=== PATIENT | female | born 1995 | race Caucasian/White ===

== ENCOUNTER 2019-03-22 14:38 | Emergency (ER) | payer SELFPAY ==
[2019-03-22 14:42] VITALS: BP 170/91; PULSE 103; RESP 18; TEMP 36.4; O2SAT 100; BMI 27.2
--- NOTE | 2019-03-22 15:05 | XRR_ITS ---
PROCEDURE INFORMATION: Exam: XR Chest, 1 View Exam date and time: 03/22/2019 3:32 PM Age: 23 years old Clinical indication: Cough; Additional info: Cough/congestion TECHNIQUE: Imaging protocol: XR of the chest Views: 1 view. COMPARISON: CR Chest 2 views* [id number] 11/18/2017 10:58 PM FINDINGS: Lungs: Unremarkable. No consolidation. Pleural space: Unremarkable. No pleural effusion. No pneumothorax. Heart/Mediastinum: Unremarkable. No cardiomegaly. Bones/joints: Unremarkable. XR/XR chest 1V portable [id number] IMPRESSION: No acute findings.
--- NOTE | 2019-03-22 16:28 | ECG_ITS ---
Measurements Intervals [place] Rate: 93 P: 70 SD: 160 QRS: 25 QRSD: 87 T: 47 QT: 341 QTc: 426 SINUS RHYTHM WITH SINUS ARRHYTHMIA LOW QRS VOLTAGE IN PRECORDIAL LEADS [QRS DEFLECTION < 1.0 mV IN CHEST LEADS] Compared to ECG 10/13/2017 18:34:14 Low QRS voltage now present ST (T wave) deviation no longer present Electronically Signed On 03-22-2019 22:08:48 RESEARCH ASSOCIATE PROFESSOR by Fadi Granados M.D. [email or web address]
[2019-03-22 17:53] VITALS: BP 132/73; PULSE 85; O2SAT 99
--- NOTE | 2019-03-22 18:21 | ED_ITS ---
Entered by Mariah Gonzales, acting as scribe for Shawn Ty MD, [facility] [place] 22, 2019 14:38 HPI - SOB/Dyspnea General: Chief Complaint: Shortness of Breath/Dyspnea Stated Complaint: congested/hurts to breathe Time Seen by Provider: 03/22/19 18:19 Source: patient Mode of arrival: ambulatory Limitations: no limitations History of Present Illness: HPI Narrative: 23 yo Female presents to ED with complaint of shortness of breath and congestion. Pt states that she isn't really having chest pains but she can't take a deep breath. Pt states that this has been going on for about a month off and on. Pt is a smoker. MD elicited complaint: shortness of breath Onset (ago): month(s) Timing: intermittent Exacerbating factors: lying flat Relieving factors: nothing Associated symptoms: Reports chest congestion and cough; Deny abdominal pain, chest pain, extremity pain, fever(s), nausea or vomiting Treatment prior to arrival: none Related Data: Home oxygen amount: none Review of Systems General: Reports: 10 or more systems reviewed and unremarkable except in HPI and below Const: Denies: fever, chills or body aches Eyes: Denies: change in vision, blurry vision or blind spots ENMT: Reports: throat pain and ear pain Card: Denies: chest pain Resp: Reports: shortness of breath, non-productive cough and chest congestion; Denies: productive cough GI: Denies: abdominal pain, nausea or vomiting : Denies: flank pain, difficulty urinating or painful urination Musc: Denies: neck pain, back pain, extremity pain or extremity swelling Skin/Breast: Denies: rash, itching or redness Neuro: Denies: headache, numbness in extremities or weakness in extremities Psych: Denies: anxiety or depression PFSH ED PFSH: Statuses (acute, chronic, etc) shown below reflect problem list status as previously entered and may not be historically accurate Social History Smoking and tobacco status: current every day smoker Female Reproductive History: Date of last menstrual period: 03/15/19 Physical Exam Const: COMMON NORMALS: no apparent distress, average body habitus, oriented x3, no limitations, healthy appearing, alert and well nourished HENMT: COMMON NORMALS: normocephalic, head/scalp atraumatic, hearing grossly normal bilaterally, external ears normal, EAC's normal, TM's normal bilaterally, external nose normal, nasal mucous membranes and turbinates normal and moist oral mucous membranes HEAD & SCALP: normocephalic and atraumatic NOSE: external nose normal and nasal mucous membranes and turbinates normal EXTERNAL EAR: Yes external ears normal EXTERNAL AUDITORY CANAL: EAC's normal TYMPANIC MEMBRANE: TM's normal bilaterally Eye: COMMON NORMALS: PERRL, EOMs intact bilaterally, conjunctivae normal and no scleral icterus CONJUNCTIVA: Yes conjunctivae normal PUPIL: Yes PERRL Neck/C-Spine: COMMON NORMALS: full ROM, supple, no meningeal signs, no JVD and no carotid bruits Chest: COMMONS NORMALS: inspection of chest normal and palpation of chest normal Resp: COMMON NORMALS: normal respiratory effort, no retractions, no use of accessory muscles, clear to auscultation bilaterally and percussion normal AUSCULTATION: clear to auscultation bilaterally PERCUSSION: percussion normal Cardio: COMMON NORMALS: no JVD, regular rate, regular rhythm, S1 normal heart sound, S2 normal heart sound, no gallops, no clicks, no murmurs, no rub and peripheral pulses 2+ throughout RATE: regular rate RHYTHM: regular rhythm HEART SOUNDS: S1 normal and S2 normal PERIPHERAL PULSES: pulses 2+ throughout GI: COMMON NORMALS: normal to inspection, nondistended, normoactive bowel barry nds, soft to palpation, non-tender, no hepatosplenomegaly, no masses and no bruits PALPATION: Yes soft and Yes no hepatosplenomegaly : COMMON NORMALS: Yes no CVA tenderness BLADDER/KIDNEY EXAM: Yes no CVA tenderness Back/Pelvis: COMMON NORMALS: no CVA tenderness Extremity: COMMON NORMALS: normal to inspection, full ROM, normal capillary refill, no joint enlargement, no clubbing, cyanosis or edema, no calf tenderness and no pedal edema Neuro: COMMON NORMALS: oriented x3 SENSORIUM/ORIENTATION: Yes alert MENINGEAL SIGNS: Yes no meningeal signs Skin: COMMON NORMALS: no rashes or lesions noted, no wounds, skin turgor normal, no jaundice, no petechiae and no mottling GENERAL SKIN EXAM: no rashes or lesions noted and turgor normal Course Vital Signs: Vital signs: Vital Signs Temperature 97.6 F 03/22/19 14:42 Pulse Rate 71 03/22/19 22:03 Respiratory Rate 16 03/22/19 22:03 Blood Pressure 126/74 03/22/19 22:03 Pulse Oximetry 98 03/22/19 22:03 MDM - SOB/Dyspnea MDM Narrative: Medical decision making narrative: 23-year-old female patient who presents with shortness of breath. This is not a new thing. Evaluation unremarkable other than mildly elevated liver enzymes. Ultrasound of her gallbladder negative. She is advised to follow-up with her primary care provider for evaluation of her liver enzymes. She voiced understanding and is in agreement with the plan. Lab Data: Labs: Lab Results 03/22/19 03/22/19 Range/Units 19:20 19:20 WBC 6.4 (4.0-10.0) 10^3/ uL RBC 4.30 (4.1-5.3) 10^6/u L Hgb 12.6 (11.5-15.3) g/dL Hct 37.6 (37.0-47.0) % MCV 87.4 (81-99) fL MCH 29.3 (28.0-34.0) pg MCHC 33.5 (30.0-36.0) g/dL RDW 12.5 (12.1-15.1) % Plt Count 241 (130-400) 10^3/c mm MPV 9.5 (7.4-10.4) fL Neut % (Auto) 48.7 % Lymph % (Auto) 33.9 % Trigg % (Auto) 11.8 % Eos % (Auto) 4.6 % Baso % (Auto) 0.8 % Neut # (Auto) 3.1 (1.8-7.7) 10^3/u L Lymph # (Auto) 2.2 (0.8-4.8) 10^3/u L Trigg # (Auto) 0.8 (0.2-0.9) 10^3/u L Eos # (Auto) 0.3 (0.0-0.8) 10^3/u L Baso # (Auto) 0.1 (0.0-0.1) 10^3/u L Nucleated RBC % (a uto) 0 % Nucleated RBCs # 0.0 /100WBC Sodium 139 (136-145) mmol/L Potassium 4.0 (3.5-5.1) mmol/L Chloride 104 (98-107) mmol/L Carbon Dioxide 25 (22-29) mmol/L Anion Gap 14.0 (5-19) BUN 9 (6-20) mg/dL Creatinine 0.7 (0.5-0.9) mg/dL GFR Calculation 105.6 (90-130) mL/min Glucose 90 (74-109) mg/dL Calcium 9.6 (8.6-10.0) mg/Dl Total Bilirubin 0.4 (0.15-1.2) mg/dL AST 36 H (0-32) U/L ALT 50 H (0-33) U/L Alkaline Phosphata se 148 H (35-105) IU/L C-Reactive Protein 1.0 (0.0-4.9) mg/L Total Protein 6.9 (6.6-8.7) g/dL Albumin 4.2 (3.5-5.2) g/dL Globulin 2.7 (1.3-4.6) g/dL Imaging Data^: CXR: Radiologist's impression: [place] [address] XRay Report Signed Patient: aKt Arora #: [id number] : 1995Acct#:[id number] Age/Sex: 23 / FADM Date: 03/22/19 [facility] Attending Dr: Ordering Provider/Ordering MD: Marcela Bergeron Date of Service: 03/22/19 Procedure(s): XR chest 1V portable [id number] Accession Number(s): [id number] Report Number: [id number] PROCEDURE INFORMATION: Exam: XR Chest, 1 View Exam date and time: 03/22/2019 3:32 PM Age: 23 years old Clinical indication: Cough; Additional info: Cough/congestion TECHNIQUE: Imaging protocol: XR of the chest Views: 1 view. COMPARISON: CR Chest 2 views* [id number] 11/18/2017 10:58 PM FINDINGS: Lungs: Unremarkable. No consolidation. Pleural space: Unremarkable. No pleural effusion. No pneumothorax. Heart/Mediastinum: Unremarkable. No cardiomegaly. Bones/joints: Unremarkable. XR/XR chest 1V portable [id number] IMPRESSION: No acute findings. Dictated By:Martinez Peña Signed By:Tray Peña Date/Time:03/22/191651 DD/ 50 EKG Data^: EKG 1: Other EKG Comments: [place] [address] Electrocardiograph Report Signed Patient: Kat Arora #: [id number] : 1995Acct#:[id number] Age/Sex: Date: 03/22/19 Loc: ERRoom/Bed: Attending Dr: Ordering Provider/Ordering MD: Marcela Bergeron Date of Service: 03/22/19 Procedure(s): ECG 12 lead EKG Accession Number(s): [id number] Report Number: [id number] Measurements Intervals [place] Rate: 93 P: 70 [place]: 160 QRS: 25 QRSD: 87 T: 47 QT: 341 QTc: 426 SINUS RHYTHM WITH SINUS ARRHYTHMIA LOW QRS VOLTAGE IN PRECORDIAL LEADS [QRS DEFLECTION < 1.0 mV IN CHEST LEADS] Compared to ECG 10/13/2017 18:34:14 Low QRS voltage now present ST (T wave) deviation no longer present Electronically Signed On 03-22-2019 22:08:48 MAIL FORWARDING SYSTEM MARKUP CLERK by Fadi Granados M.D. [id number] Dictated By:Fadi Granados MD Signed By:Fadi Granados MDSigned Date/Time:03/22/192208 Discharge Plan Discharge Patient Disposition: Home, Self-Care Clinical Impression: Shortness of breath, Elevated liver enzymes Condition: Stable Prescriptions: No Action albuterol sulfate [ProAir HFA] 90 mcg/actuation HFA aerosol inhaler See Rx Instructions INHALATION .COMPLEX PRN (Reason: shortness of breath or wheezing) Qty: 8.5 RF: 0 Discharge Orders: Discharge Order (Routine); Ordered 03/22/19 Ordered By: Shawn Ty Referrals: Gopi Gutierrez MD [Primary Care Provider] - 1-3 days Activity Restrictions/Additional Instructions: Return for any new or worsening symptoms. Follow-up with your primary care provider within 3 days for repeat lab work to look at your liver function to ensure it improves. Drink plenty of fluids to keep well-hydrated. Discharge Date/Time: 03/22/19 22:06 Coding Level of Care Code ED Foxer for Chg Fwd Exam Problem Focused The documentation recorded by the Christian goodman Carmen, accurately reflects the service I personally performed and the decisions made by me, Shawn Ty MD, [facility] [place] Mar 22, 2019 14:38
[2019-03-22 19:02] VITALS: BP 112/65; PULSE 73; RESP 16; O2SAT 98
[2019-03-22 19:36] LABS: Basophils # 0.1 10^3/uL (0.0-0.1); Basophils % 0.8 %; Eosinophils # 0.3 10^3/uL (0.0-0.8); Eosinophils % 4.6 %; Hematocrit 37.6 % (37.0-47.0); Hemoglobin 12.6 g/dL (11.5-15.3); Lymphocytes # 2.2 10^3/uL (0.8-4.8); Lymphocytes % 33.9 %; Mean Corpuscular HGB Conc 33.5 g/dL (30.0-36.0); Mean Corpuscular Hemoglobin 29.3 pg (28.0-34.0); Mean Corpuscular Volume 87.4 fL (81-99); Mean Platelet Volume 9.5 fL (7.4-10.4); Monocytes # 0.8 10^3/uL (0.2-0.9); Monocytes % 11.8 %; Neutrophils # 3.1 10^3/uL (1.8-7.7); Neutrophils % 48.7 %; Nucleated Red Blood Cells % 0 %; Platelet Count 241 10^3/cmm (130-400); Red Cell Distribution Width 12.5 % (12.1-15.1); White Blood Count 6.4 10^3/uL (4.0-10.0)
[2019-03-22 19:53] LABS: Alanine Aminotransferase 50 U/L (0-33); Albumin Level 4.2 g/dL (3.5-5.2); Alkaline Phosphatase 148 IU/L (35-105); Aspartate Amino Transferase 36 U/L (0-32); Blood Urea Nitrogen 9 mg/dL (6-20); Calcium 9.6 mg/Dl (8.6-10.0); Carbon Dioxide 25 mmol/L (22-29); Chloride 104 mmol/L (98-107); Globulin 2.7 g/dL (1.3-4.6); Glomerular Filtration Rate 105.6 mL/min (90-130); Glucose 90 mg/dL (74-109); Sodium 139 mmol/L (136-145); Total Bilirubin 0.4 mg/dL (0.15-1.2); Total Protein 6.9 g/dL (6.6-8.7)
--- NOTE | 2019-03-22 19:56 | PC.NURSE ---
REPORT RECEIVED FROM JAMAL JOYA AND CARE TRANSFERRED TO JAMAL ALVAREZ
--- NOTE | 2019-03-22 20:22 | US_ITS ---
WS: [id number] RIGHT UPPER QUADRANT ULTRASOUND HISTORY: elevated liver enzymes COMPARISON: None available. Liver: 16.6 cm in length. Normal size and echogenicity with no intrahepatic dilatation. No mass. Gallbladder: Normally distended gallbladder with no stones or wall thickening. CBD: 4.2 mm Pancreas: Normal size and echogenicity. Right kidney: 12.2 cm in length. Normal echogenicity with no mass or hydronephrosis. Aorta and IVC: Unremarkable. No ascites. US/US gall bladder [id number] IMPRESSION: Normal RIGHT upper quadrant ultrasound.
[2019-03-22 21:08] VITALS: BP 115/70; PULSE 73; RESP 16; O2SAT 99
[2019-03-22 22:03] VITALS: BP 126/74; PULSE 71; RESP 16; O2SAT 98
== END 2019-03-22 22:06 | disposition home or self-care (01) ==
PROVIDERS: Emergency Provider Family Medicine; PCP Family Medicine
DX: R06.02 Shortness of breath (principal); R74.8 Abnormal levels of other serum enzymes; F17.210 Nicotine dependence, cigarettes, uncomplicated
CPT/HCPCS: 36415; 71045; 76705; 80053; 85025; 86140; 93005; 99281